=== PATIENT | male | born 1950 | race Caucasian/White ===

== ENCOUNTER 2024-11-24 17:49 | Emergency (ER) | payer MEDICARE, OTHER ==
[2024-11-24 18:56] VITALS: BP 149/59; PULSE 59
== END 2024-11-24 18:55 | disposition home or self-care (01) ==
LOC: LL.ED 17:49
DX: S41.111A Laceration without foreign body of right upper arm, initial encounter (principal); I10 Essential (primary) hypertension; E11.9 Type 2 diabetes mellitus without complications; Z90.49 Acquired absence of other specified parts of digestive tract; Z87.891 Personal history of nicotine dependence; Z88.6 Allergy status to analgesic agent; Z79.01 Long term (current) use of anticoagulants; W19.XXXA Unspecified fall, initial encounter
CPT/HCPCS: 99282

== ENCOUNTER 2025-01-04 17:03 | Emergency (ER) | payer OTHER | END 2025-01-04 17:56 | disposition home or self-care (01) | LOC: LL.ED 17:03 | DX: Z79.01 Long term (current) use of anticoagulants (principal); Z88.8 Allergy status to other drugs, medicaments and biological substances; I10 Essential (primary) hypertension; E11.9 Type 2 diabetes mellitus without complications; Z90.49 Acquired absence of other specified parts of digestive tract; Z87.891 Personal history of nicotine dependence | CPT/HCPCS: 99283 ==